=== PATIENT | female | born 1995 | race Caucasian/White ===

== ENCOUNTER 2019-01-30 16:58 | Emergency (ER) | payer MEDICAID ==
--- NOTE | 2019-01-30 17:41 | EDM.PDOC ---
ED HPI GENERAL MEDICAL PROBLEM - General Chief Complaint: Neck Problem Stated Complaint: NECK AND RIGHT SHOULDER PAIN Time Seen by Provider: 01/30/19 17:17 Source of Information: Reports: Patient History Limitations: Reports: No Limitations - History of Present Illness INITIAL COMMENTS - FREE TEXT/NARRATIVE: 24-year-old female presents for evaluation and treatment of pain to the right neck and right shoulder. She states that this has been going on for approximately one week. Reports that breathing, sneezing, any movement seems to exacerbate the pain. She has been taking Motrin every 2-4 hours but continues to experience pain. She describes it as a dull, throbbing sensation. No trauma, falls or motor vehicle accidents that she is aware of. She reports numbness and tingling into the right fourth and fifth fingers. She denies any pain going into her arm. She reports associated headaches. No chest pain, lightheadedness, dizziness, syncope, nausea, vomiting or any pain or swelling in her legs. Patient does not have a primary care provider. She recently moved here from [place] and she'll be here the next few weeks but then plans to move to [place]. Treatments ROLL CAPPER: Reports: Other (see below) Other Treatments ROLL CAPPER: motrin prn Right Neck Pain Score (Numeric/FACES): 7 Right Shoulder Pain Score (Numeric/FACES): 7 - Related Data Allergies Allergy/AdvReac Type Severity Reaction Status Date / Time No Known Allergies Allergy Verified 01/30/19 17:11 Home Meds: Home Meds Cyclobenzaprine [Flexeril] 10 mg PO BID PRN #15 tab 01/30/19 [Rx] Naproxen 500 mg PO BID PRN #20 tablet 01/30/19 [Rx] Past Medical History - Past Health History Medical/Surgical History: Denies Medical/Surgical History Social & Family History - Tobacco Use Smoking Status *Q: Current Every Day Smoker Years of Tobacco use: 4 Packs/Tins Daily: 0.5 - Caffeine Use Caffeine Use: Reports: Coffee, Energy Drinks, Soda - Recreational Drug Use Recreational Drug Use: No ED ROS GENERAL - Review of Systems Review Of Systems: See Below Cardiovascular: Denies: Chest Pain, Lightheadedness, Syncope Musculoskeletal: Reports: Neck Pain (right), Shoulder Pain (right). Denies: Leg Pain Neurological: Reports: Headache, Numbness (right hand finger 4 and 5), Tingling (right hand finger 4 and 5 ) ED EXAM, UPPER BACK/NECK PAIN - Physical Exam Exam: See Below Exam Limited By: No Limitations General Appearance: Alert, WD/WN, No Apparent Distress Eye Exam: Bilateral Eye: Normal Inspection Ears Exam: Normal External Exam Nose Exam: Normal Inspection Throat/Mouth Exam: Normal Inspection, Normal Lips, Normal Voice, No Airway Compromise Head Exam: Atraumatic, Normocephalic Neck Exam: Full Range of Motion, Normal Alignment, Normal Inspection, Tender Lateral (Right lower neck along the trapezius muscle). No: Spinous Processes Tender Cardiovascular/Respiratory: Regular Rate, Rhythm, No M/R/G, Normal Peripheral Pulses Back Exam: Normal Inspection. No: Vertebral Tenderness Extremities: Normal Inspection (No swelling to the right arm), Limited Range of Motion (Patient has full range of motion to the right shoulder but reports pain with extension and forward flexion.) Neurologic: Alert, Normal Mood/Affect Psychiatric: Normal Affect, Normal Mood Skin Exam: Normal Color, Warm/Dry Course - Vital Signs Last Recorded V/S: Last Vital Signs Temp 97.7 F 01/30/19 17:07 Pulse 100 01/30/19 17:07 Resp 20 01/30/19 17:07 BP 114/79 01/30/19 17:07 Pulse Ox 100 01/30/19 17:07 - Re-Assessments/Exams Free Text/Narrative Re-Assessment/Exam: 01/30/19 17:37 Patient is tender along her trapezius muscle. I will treat her with muscle relaxers and naproxen. Recommend heat. Discharge instructions as documented. Departure - Departure Time of Disposition: 17:37 Disposition: Home, Self-Care 01 Condition: Fair Clinical Impression: Neck strain - Discharge Information *PRESCRIPTION DRUG MONITORING PROGRAM REVIEWED*: Yes *COPY OF PRESCRIPTION DRUG MONITORING REPORT IN PATIENT SASK[place]: No Prescriptions: Cyclobenzaprine [Flexeril] 10 mg PO BID PRN #15 tab PRN Reason: Muscle Spasm Naproxen 500 mg PO BID PRN #20 tablet PRN Reason: Pain Instructions: Cervical Strain and Sprain Rehab-[facility] Referrals: PCP,None [Primary Care Provider] - Forms: ED Department Discharge Additional Instructions: Take the naproxen as prescribed. 1 tab twice a day as needed for pain. May take Flexeril 1 tab twice a day as needed for muscle pain and spasms. This medication can be sedating, do not drive or operate machinery until you know how this medication will affect you. Recommend using heat, topical products such as Icyhot or BenGay for additional pain relief. Consider seen a chiropractor or massage therapist if your symptoms do not improve. if you continue to have pain beyond 2 weeks follow-up with family medicine. Here in [place] recommend Johanny Pandya or Amber Eng. Call [phone] to schedule with one of these providers. Please return to the ER if your symptoms change or worsen.
== END 2019-01-30 17:50 | disposition home or self-care (01) ==
LOC: JD.ED 16:58
DX: S16.1XXA Strain of muscle, fascia and tendon at neck level, initial encounter (principal); F17.210 Nicotine dependence, cigarettes, uncomplicated; X58.XXXA Exposure to other specified factors, initial encounter
CPT/HCPCS: 99283